=== PATIENT | male | born 1975 ===

== ENCOUNTER 2019-12-18 20:49 | Emergency (ER) | payer SELFPAY ==
[2019-12-18] MEDS ORDERED: Lidocaine 1% w/Epinephrine 1:100K 20 ML VIAL ONE ×2 (21:10→21:11)
== END 2019-12-18 21:31 | disposition home or self-care (01) ==
LOC: ERS 20:49
DX: L02.413 Cutaneous abscess of right upper limb (principal); F31.9 Bipolar disorder, unspecified
CPT/HCPCS: 10060